=== PATIENT | female | born 1960 | race African-American/Black ===

== ENCOUNTER 2023-04-03 18:14 | Emergency (ER) | payer MEDICARE, MEDICAID ==
[2023-04-03] MEDS ORDERED: Sodium Chloride 0.9% 1,000 ML ONE (18:52)
[2023-04-03 19:27] LABS: Eosinophils 3 % (0-10); Giant Platelets SLIGHT HPF (0-5); Hematocrit 42.3 % (36.0-47.0); Hemoglobin 13.5 g/dL (12.0-16.0); Large Platelets SLIGHT (None Seen); Lymphocytes 38 % (21-51); MDiff Complete? YES; Manual Diff?? YES; Mean Corpuscular Hemoglobin 28.1 pg (27.0-31.0); Mean Corpuscular Volume 88.1 fl (78.0-98.0); Mean Platelet Volume 12.2 fL (7.4-10.4); Monocytes 8 % (0-10); Neutrophil 31 % (42-75); Platelet Count 232 10x3/uL (130-400); RBC Distribution Width 11.8 % (11.5-14.5); White Blood Cell (WBC) Count 7.4 10x3/uL (4.8-10.8)
[2023-04-03 19:28] LABS: RBC Morph Comment Within Normal Limits; Reactive Lymphocytes 20 % (0-10)
[2023-04-03 19:30] LABS: ALT (SGPT) 26 U/L (8-55); AST (SGOT) 23 U/L (5-34); Albumin 4.4 g/dL (3.4-4.8); Alkaline Phosphatase 82 U/L (40-110); Anion Gap 16 mmol/L (10-20); BUN (Urea Nitrogen) 11 mg/dL (9.8-20.1); Bilirubin, Total 0.5 mg/dL (0.2-1.2); Calc. Creatinine Clearance 0 mL/min (70-130); Calcium 9.8 mg/dL (7.8-10.44); Carbon Dioxide 22 mmol/L (23-31); Chloride 102 mmol/L (98-107); Estimated GFR 53; Globulin 3.4 g/dL (2.4-3.5); Glucose 150 mg/dL (80-115); Magnesium 1.7 mg/dL (1.6-2.6); Potassium 3.7 mmol/L (3.5-5.1); Protein, Total 7.8 g/dL (5.8-8.1); Sodium 136 mmol/L (136-145)
[2023-04-03 19:58] LABS: Bilirubin Negative (Negative); Blood, Urine Negative (Negative); Clarity Clear (Clear); Glucose, Urine (Dipstick) 100 mg/dL (Negative); Ketone, Urine Negative (Negative); Leukocyte Negative (Negative); Nitrite Negative (Negative); Protein, Urine (Dipstick) Negative (Neg-Trace); Urobilinogen 0.2 mg/dL (Less than 2)
[2023-04-03 20:12] LABS: Bacteria/HPF Rare-Few HPF (None Seen); CAUTI Indications for Culture Dysuria,urgency,freq; RBC/HPF None Seen HPF (0-3); Urine Culture Reflex No No; WBC/HPF 0-3 HPF (0-3)
== END 2023-04-03 20:24 | disposition home or self-care (01) ==
LOC: MADERS 18:14
DX: R53.83 Other fatigue (principal); E86.0 Dehydration; E11.9 Type 2 diabetes mellitus without complications; E78.5 Hyperlipidemia, unspecified; F17.210 Nicotine dependence, cigarettes, uncomplicated; Z79.84 Long term (current) use of oral hypoglycemic drugs; Z79.82 Long term (current) use of aspirin; Z79.4 Long term (current) use of insulin
CPT/HCPCS: 80053; 81001; 83735; 85025; 94760; 96360; 96361; J7050